=== PATIENT | female | born 1935 | race Caucasian/White ===

== ENCOUNTER 2017-03-20 18:11 | Inpatient (IN) | payer MEDICARE, BC ==
[2017-03-20] MEDS ORDERED: IPRATROPIUM/ALBUTEROL 0.5-2.5 MG/3 ML AMPUL NEB ONE ×2 (18:52→20:14)
--- NOTE | 2017-03-20 18:54 | ER Document Report ---
ED Medical Screen (RME) - General Chief Complaint: Shortness Of Breath Stated Complaint: SHORTNESS OF BREATH, COUGH Time Seen by Provider: 03/20/17 18:52 Notes: Patient was sent from urgent care. Patient has exertional dyspnea. Urgent care states that her sats were 88% when walking. Patient is an active smoker. She states she has does not have any type of inhalers at home. She has had cough and congestion for several days. TRAVEL OUTSIDE OF THE [place] IN LAST 30 DAYS: No - Related Data Allergies/Adverse Reactions: No Known Allergies Allergy (Verified 03/20/17 18:12) Home Medications: Current Home Medications Amlodipine Besylate [Amlodipine Besylate] 1 tab PO DAILY 03/20/17 [History] Atenolol [Atenolol] 1 tab PO DAILY 03/20/17 [History] Azithromycin [Azithromycin] 1 tab PO DAILY 03/20/17 [History] Prednisone [Prednisone] 2 tab PO DAILY 03/20/17 [History] Triamterene/Hydrochlorothiazid [Triamterene-Hctz 37.5-25 mg Tb] 1 each PO DAILY 03/20/17 [History] Past Medical History - Social History Chew tobacco use (# tins/day): No Frequency of alcohol use: Occasional Drug Abuse: None Renal/ Medical History: Denies: Hx Peritoneal Dialysis Physical Exam - Vital signs Vitals: Temp Pulse Resp BP Pulse Ox 97.9 F 80 16 143/69 H 93 03/20/17 18:31 03/20/17 18:31 03/20/17 18:31 03/20/17 18:31 03/20/17 18:31 Course - Vital Signs Vital signs: Temp Pulse Resp BP Pulse Ox 97.9 F 80 16 143/69 H 93 03/20/17 18:31 03/20/17 18:31 03/20/17 18:31 03/20/17 18:31 03/20/17 18:31
[2017-03-20 19:22] LABS: ABSOLUTE LYMPHOCYTES (AUTO) 1.3 10^3/uL (0.5-4.7); ABSOLUTE MONOCYTES (AUTO) 0.5 10^3/uL (0.1-1.4); BASOPHILS % (AUTO) 0.4 % (0-2); HEMATOCRIT 48.2 % (36.0-47.0); HEMOGLOBIN 17.4 g/dL (12.0-15.5); LYMPHOCYTES % (AUTO) 10.3 % (13-45); MEAN CORPUSCULAR HEMOGLOBIN 34.9 pg (27.0-33.4); MEAN CORPUSCULAR VOLUME 97 fl (80-97); MONOCYTES % (AUTO) 4.2 % (3-13); RED BLOOD COUNT 4.97 10^6/uL (3.72-5.28); RED CELL DISTRIBUTION WIDTH 13.2 % (11.5-14.0); SEGMENTED NEUTROPHILS % (AUTO) 85.1 % (42-78)
--- NOTE | 2017-03-20 19:38 | ER Document Report ---
ED Respiratory Problem - General Chief Complaint: Shortness Of Breath Stated Complaint: SHORTNESS OF BREATH, COUGH Time Seen by Provider: 03/20/17 18:52 Notes: Patient is a 82-year-old female comes emergency department for chief complaint of cough, congestion, and shortness of breath. She denies fever or chest pain. She states shortness of breath is when she gets up and tries to do anything. Symptoms started about 4 days ago, she was seen yesterday and placed on azithromycin and 40 mg of prednisone, she has had one dose of each. She is a smoker, she has a diagnosis of COPD, she is not on home oxygen, she denies history of hospitalizations, intubations. Only other medical history reported is hypertension. She has had flu shot. TRAVEL OUTSIDE OF THE [place] IN LAST 30 DAYS: No - Related Data Allergies/Adverse Reactions: No Known Allergies Allergy (Verified 03/20/17 18:12) Home Medications: Current Home Medications Amlodipine Besylate [Amlodipine Besylate] 5 mg PO DAILY 03/20/17 [History] Atenolol [Tenormin 50 mg Tablet] 100 mg PO DAILY 03/20/17 [History] Azithromycin [Azithromycin] 250 mg PO DAILY MDD FILLED 03/19 FOR 5DS 03/20/17 [ History] Doxycycline Hyclate [Vibramycin] 50 mg PO DAILY 03/20/17 [History] Prednisone [Prednisone] 40 mg PO DAILY MDD FILLED 03/19 FOR 5DS 03/20/17 [ History] Triamterene/Hydrochlorothiazid [Triamterene-Hctz 37.5-25 mg Tb] 1 tab PO DAILY 03/20/17 [History] Past Medical History - General Information source: Patient - Social History Smoking Status: Current Every Day Smoker Chew tobacco use (# tins/day): No Smoking Education Provided: Yes - <3 min Frequency of alcohol use: Occasional Drug Abuse: None Lives with: Family Family History: Reviewed & Not Pertinent Patient has suicidal ideation: No Patient has homicidal ideation: No - Past Medical History Cardiac Medical History: Reports: Hx Hypercholesterolemia, Hx Hypertension Pulmonary Medical History: Reports: Hx COPD Renal/ Medical History: Denies: Hx Peritoneal Dialysis - Immunizations Immunizations up to date: Yes Review of Systems - Review of Systems Constitutional: No symptoms reported EENT: See HPI Cardiovascular: No symptoms reported Respiratory: See HPI Gastrointestinal: No symptoms reported Genitourinary: No symptoms reported Female Genitourinary: No symptoms reported Musculoskeletal: No symptoms reported Skin: No symptoms reported Hematologic/Lymphatic: No symptoms reported Neurological/Psychological: No symptoms reported Physical Exam - Vital signs Vitals: Temp Pulse Resp BP Pulse Ox 97.9 F 80 16 143/69 H 93 03/20/17 18:31 03/20/17 18:31 03/20/17 18:31 03/20/17 18:31 03/20/17 18:31 Interpretation: Normal - General General appearance: Alert, Other - Patient with congested cough, does not appear to be in distress, alert, responds to questions appropriately - HEENT Head: Normocephalic, Atraumatic Eyes: Normal Pupils: PERRL - Respiratory Respiratory status: No: Respiratory distress, Labored Chest status: Nontender Breath sounds: Decreased air movement, Nonproductive cough, Rhonchi, Wheezing - Cardiovascular Rhythm: Regular. No: Tachycardia Heart sounds: Normal auscultation, S1 appreciated, S2 appreciated Murmur: No - Abdominal Inspection: Normal Distension: No distension Bowel sounds: Normal Tenderness: Nontender. No: Tender, Guarding Organomegaly: No organomegaly - Back Back: Normal, Nontender. No: Tender, CVA tenderness - Extremities General upper extremity: Normal inspection, Nontender, Normal strength, Normal temperature General lower extremity: Normal inspection, Nontender, Normal strength, Normal temperature - Neurological Neuro grossly intact: Yes Cognition: Normal Orientation: AAOx4 [place] Coma Scale Eye Opening: Spontaneous [place] Coma Scale Verbal: Oriented Joceline Coma Scale Motor: Obeys Commands Joceline Coma Scale Total: 15 Speech: Normal Motor strength normal: LUE, RUE, LLE, RLE Sensory: Normal - Psychological Associated symptoms: Normal affect, Normal mood - Skin Skin Temperature: Warm Skin Moisture: Dry Skin Color: Normal Course - Re-evaluation Re-evalutation: On initial evaluation patient has borderline tachypnea, borderline hypoxemia at 93% on room air, when placed on 2 L nasal cannula she averages at 95%. She has decreased breath sounds, scattered rhonchi, loud expiratory wheezes. Consistent with upper respiratory infection and COPD exacerbation. Chest x-ray unremarkable, CBC shows mild leukocytosis which is nonspecific given her prednisone, no fevers. Chemistry nonspecific. 03/20/17 23:20 Patient is significantly improved with only scant wheezes and a few scattered rhonchi after magnesium, Solu-Medrol, duo nebs. She is comfortable at rest on oxygen. When she ambulates she becomes pale, has labored breathing, oxygen saturation drops down to 85%. Patient is uncomfortable going home. Will discuss for admission to the hospital for COPD exacerbation, dyspnea on exertion , hypoxemia. Discussed with Dr. Aragon, internal medicine, patient will be admitted to telemetry observation. Patient and daughter state satisfaction and agreement with plan. - Vital Signs Vital signs: Temp Pulse Resp BP Pulse Ox 98.2 F 88 18 147/64 H 95 03/21/17 01:56 03/21/17 02:03 03/21/17 02:03 03/21/17 01:56 03/21/17 02:40 - Laboratory Result Diagrams: 03/20/17 19:05 03/20/17 19:05 Laboratory results interpreted by me: 03/20/17 03/20/17 19:05 19:05 WBC 13.0 H Hgb 17.4 H Hct 48.2 H MCH 34.9 H Seg Neutrophils % 85.1 H Lymphocytes % 10.3 L Absolute Neutrophils 11.0 H Sodium 133.7 L Chloride 94 L Glucose 153 H AST 46 H ALT 55 H Discharge - Discharge Clinical Impression: COPD exacerbation, Wheezing, Hypoxia Condition: Stable Disposition: ADMITTED OBSERVATION Admitting Provider: Hospitalist Unit Admitted: Telemetry
[2017-03-20 19:41] LABS: ALANINE AMINOTRANSFERASE 55 U/L (9-52); ALKALINE PHOSPHATASE 117 U/L (38-126); ANION GAP 15 (5-19); ASPARTATE AMINO TRANSFERASE 46 U/L (14-36); BILIRUBIN,DIRECT 0.3 mg/dL (0.0-0.4); BILIRUBIN,TOTAL 0.8 mg/dL (0.2-1.3); BLOOD UREA NITROGEN 19 mg/dL (7-20); CALCIUM 10.2 mg/dL (8.4-10.2); CARBON DIOXIDE 25 mmol/L (22-30); CHLORIDE 94 mmol/L (98-107); CREATININE RESULT 0.63 mg/dL (0.52-1.25); GLUCOSE 153 mg/dL (75-110); POTASSIUM 4.2 mmol/L (3.6-5.0); SODIUM 133.7 mmol/L (137-145); TOTAL PROTEIN 7.9 g/dL (6.3-8.2)
--- NOTE | 2017-03-20 19:45 | RADIOLOGY REPORT (SQ) ---
EXAM DESCRIPTION: CHEST PA/LAT COMPLETED DATE/TIME: 03/20/2017 7:14 pm REASON FOR STUDY: sob/cough COMPARISON: None. EXAM PARAMETERS: NUMBER OF VIEWS: two views TECHNIQUE: Digital Frontal and Lateral radiographic views of the chest acquired. RADIATION DOSE: NA LIMITATIONS: none FINDINGS: LUNGS AND PLEURA: No opacities, masses or pneumothorax. No pleural effusion. MEDIASTINUM AND HILAR STRUCTURES: No masses or contour abnormalities. HEART AND VASCULAR STRUCTURES: Heart normal size. No evidence for failure. BONES: No acute findings. HARDWARE: None in the chest. OTHER: No other significant finding. IMPRESSION: NO SIGNIFICANT RADIOGRAPHIC FINDING IN THE CHEST. TECHNICAL DOCUMENTATION: JOB ID: [id number] [employer]- All Rights Reserved
[2017-03-20] MEDS ORDERED: METHYLPREDNISOLONE INJ 125 MG/2 ML SDV IV ONE (20:14)
[2017-03-20] MEDS ORDERED: NORMAL SALINE 1000 ML 500 ML IV ONE (20:14)
[2017-03-20] MEDS: MAGNESIUM SULFATE/D5W 1 GM/100 ML RTUPB IV SCH ×2 (20:53→21:50)
[2017-03-20] MEDS ORDERED: ACETAMINOPHEN 325 MG TABLET PO PRN (23:31)
[2017-03-20] MEDS ORDERED: CHLORPHENIRAMINE MALEATE 4 MG TABLET PO ONE (23:31)
[2017-03-20] MEDS ORDERED: HYDRALAZINE HCL INJ/PF 20 MG/1 ML SDV IV PRN (23:31)
[2017-03-20] MEDS ORDERED: GUAIFENESIN SYRP 200 MG/10 ML UDC PO PRN (23:32)
[2017-03-20] MEDS ORDERED: FLUTICASONE NASAL SPRAY 50 MCG/SPRY 120 SPRAY/16 GM NASL ONE (23:45)
[2017-03-21] MEDS ORDERED: FLUTICASONE NASAL SPRAY 50 MCG/SPRY 120 SPRAY/16 GM ONE (01:00)
[2017-03-21] MEDS ORDERED: CHLORPHENIRAMINE MALEATE 4 MG TABLET ONE (01:00)
[2017-03-21] MEDS: IPRATROPIUM/ALBUTEROL 0.5-2.5 MG/3 ML AMPUL NEB SCH ×4 (02:03→20:07)
--- NOTE | 2017-03-21 02:22 | PDOC H&P ---
History of Present Illness Admission Date/PCP: 03/20/17 23:34 BLAIR HERNANDEZ, ETHAN-C Patient complains of: Shortness of breath History of Present Illness: STEPHY FLAHERTY is a 82 year old female with past medical history of chronic bronchitis, tobacco dependence, hypertension. Presents after 3 days of worsening shortness of breath with nonproductive cough. Denying rhinorrhea, sore throat or uncontrolled GERD. Patient admits chronic a.m. cough and ongoing tobacco dependence. She sought evaluation by primary care and received azithromycin and prednisone without significant improvement prompting evaluation emergency room where she has a unremarkable workup with exception to mild leukocytosis of 13 but a physical exam notable for rhonchi and rales. She receives albuterol and Atrovent and referred to the hospitalist for observation. Patient denies chest pain, nausea vomiting, denies new medications other than above Past Medical History Cardiac Medical History: Reports: Hypertension Pulmonary Medical History: Reports: Chronic Obstructive Pulmonary Disease (COPD) Musculoskeltal Medical History: Reports: Arthritis Social History Information Source: Patient Smoking Status: Current Every Day Smoker Cigarettes Packs Per Day: 1 Frequency of Alcohol Use: Social Amount of Alcoholic Beverages Per Day: 2 Hx Recreational Drug Use: No Drugs: None - Advance Directive Resuscitation Status: Full Code Family History Family History: COPD Parental Family History Reviewed: Yes Children Family History Reviewed: Yes Sibling(s) Family History Reviewed.: Yes Medication/Allergy Home Medications: Amlodipine Besylate [Amlodipine Besylate] 5 mg PO DAILY 03/20/17 Atenolol [Tenormin 50 mg Tablet] 100 mg PO DAILY 03/20/17 Azithromycin [Azithromycin] 250 mg PO DAILY MDD FILLED 03/19 FOR 5DS 03/20/17 Doxycycline Hyclate [Vibramycin] 50 mg PO DAILY 03/20/17 Prednisone [Prednisone] 40 mg PO DAILY MDD FILLED 03/19 FOR 5DS 03/20/17 Triamterene/Hydrochlorothiazid [Triamterene-Hctz 37.5-25 mg Tb] 1 tab PO DAILY 03/20/17 Allergies/Adverse Reactions: No Known Allergies Allergy (Verified 03/20/17 18:12) Review of Systems Constitutional: ABSENT: chills, fever(s), headache(s), weight gain, weight loss Eyes: ABSENT: visual disturbances Ears: ABSENT: hearing changes Cardiovascular: ABSENT: chest pain, dyspnea on exertion, edema, orthropnea, palpitations Respiratory: ABSENT: cough, hemoptysis Gastrointestinal: ABSENT: abdominal pain, constipation, diarrhea, hematemesis, hematochezia, nausea, vomiting Genitourinary: ABSENT: dysuria, hematuria Musculoskeletal: ABSENT: joint swelling Integumentary: ABSENT: rash, wounds Neurological: ABSENT: abnormal gait, abnormal speech, confusion, dizziness, focal weakness, syncope Psychiatric: ABSENT: anxiety, depression, homidical ideation, suicidal ideation Endocrine: ABSENT: cold intolerance, heat intolerance, polydipsia, polyuria Hematologic/Lymphatic: ABSENT: easy bleeding, easy bruising Physical Exam Vital Signs: Temp Pulse Resp BP Pulse Ox 98.2 F 89 22 H 147/64 H 98 03/21/17 01:56 03/21/17 01:56 03/21/17 01:56 03/21/17 01:56 03/21/17 01:56 Intake & Output 03/19/17 03/20/17 03/21/17 11:59 11:59 11:59 Weight 62.6 kg General appearance: PRESENT: mild distress, well-developed, well-nourished Head exam: PRESENT: atraumatic, normocephalic Eye exam: PRESENT: conjunctiva pink, EOMI, PERRLA. ABSENT: scleral icterus Ear exam: PRESENT: normal external ear exam Mouth exam: PRESENT: moist, tongue midline Neck exam: ABSENT: carotid bruit, JVD, lymphadenopathy, thyromegaly Respiratory exam: PRESENT: accessory muscle use, rales, retraction, rhonchi, tachypnea. ABSENT: wheezes Cardiovascular exam: PRESENT: RRR. ABSENT: diastolic murmur, rubs, systolic murmur Pulses: PRESENT: normal dorsalis pedis pul Vascular exam: PRESENT: normal capillary refill GI/Abdominal exam: PRESENT: normal bowel sounds, soft. ABSENT: distended, guarding, mass, organolmegaly, rebound, tenderness Rectal exam: PRESENT: deferred Extremities exam: PRESENT: full ROM. ABSENT: calf tenderness, clubbing, pedal edema Neurological exam: PRESENT: alert, awake, oriented to person, oriented to place , oriented to time, oriented to situation, CN II-XII grossly intact. ABSENT: motor sensory deficit Psychiatric exam: PRESENT: appropriate affect, normal mood. ABSENT: homicidal ideation, suicidal ideation Skin exam: PRESENT: dry, intact, warm. ABSENT: cyanosis, rash Results Impressions: Chest X-Ray 03/20/17 18:52 IMPRESSION: NO SIGNIFICANT RADIOGRAPHIC FINDING IN THE CHEST. Assessment & Plan - Diagnosis (1) Acute exacerbation of chronic bronchitis Is this a current diagnosis for this admission?: Yes Plan: Telemetry observation, chlorpheniramine, Flonase, albuterol and Atrovent, flutter valve and empiric antibiotics. (2) Tobacco abuse Is this a current diagnosis for this admission?: Yes Plan: Tobacco Dependence patient received tobacco cessation counseling and offered nicotine replacement options (3) COPD exacerbation Is this a current diagnosis for this admission?: Yes Plan: Please see #1 - Time Time Spent: 30 to 50 Minutes
[2017-03-21 05:08] LABS: ABSOLUTE LYMPHOCYTES (AUTO) 0.8 10^3/uL (0.5-4.7); ABSOLUTE MONOCYTES (AUTO) 0.2 10^3/uL (0.1-1.4); BASOPHILS % (AUTO) 0.1 % (0-2); HEMATOCRIT 41.9 % (36.0-47.0); HGB HCT DIFFERENCE 3.1; LYMPHOCYTES % (AUTO) 7.9 % (13-45); MEAN CORPUSCULAR HEMOGLOBIN 35.1 pg (27.0-33.4); MEAN CORPUSCULAR HGB CONC 35.8 g/dL (32.0-36.0); MEAN CORPUSCULAR VOLUME 98 fl (80-97); MONOCYTES % (AUTO) 2.3 % (3-13); RED BLOOD COUNT 4.27 10^6/uL (3.72-5.28); SEGMENTED NEUTROPHILS % (AUTO) 89.7 % (42-78)
[2017-03-21 05:28] LABS: ANION GAP 15 (5-19); BLOOD UREA NITROGEN 15 mg/dL (7-20); CALCIUM 9.8 mg/dL (8.4-10.2); CARBON DIOXIDE 21 mmol/L (22-30); CHLORIDE 95 mmol/L (98-107); CREATININE RESULT 0.64 mg/dL (0.52-1.25); GLUCOSE 258 mg/dL (75-110); POTASSIUM 3.6 mmol/L (3.6-5.0); SODIUM 131.4 mmol/L (137-145)
[2017-03-21] MEDS: HEPARIN SOD (PORCINE) 5,000 UNIT/ML 1 ML SYRINGE SUBCUT SCH ×3 (06:15→22:06)
[2017-03-21] MEDS ORDERED: PREDNISONE 20 MG TABLET PO SCH (10:00)
[2017-03-21] MEDS ORDERED: LEVOFLOXACIN 750 MG/D5W RTU 750 MG/150 ML RTUPB IV SCH (10:00)
[2017-03-21] MEDS: TRIAMTERENE/HYDROCHLOROTHIAZIDE 37.5-25 MG TABLET PO SCH (10:21)
[2017-03-21] MEDS: AMLODIPINE BESYLATE 5 MG TABLET PO SCH (10:21)
[2017-03-21] MEDS: FLUTICASONE NASAL SPRAY 50 MCG/SPRY 120 SPRAY/16 GM NASL SCH ×2 (10:22→22:06)
[2017-03-21] MEDS: ATENOLOL 50 MG TABLET PO SCH (10:27)
--- NOTE | 2017-03-21 12:05 | PDOC PROGRESS REPORT ---
Subjective Progress Note for:: 03/21/17 Subjective:: Still complains of cough and shortness of breath. Reason For Visit: COPD EXACERBATION ACUTE ON CHRONIC BRONCHITIS Physical Exam Vital Signs: Temp Pulse Resp BP Pulse Ox 97.6 F 84 14 137/60 H 95 03/21/17 07:47 03/21/17 08:02 03/21/17 08:02 03/21/17 07:47 03/21/17 08:02 Intake & Output 03/20/17 03/21/17 03/22/17 06:59 06:59 06:59 Intake Total 100 Output Total 200 Balance -100 Weight 62.6 kg General appearance: PRESENT: no acute distress Eye exam: PRESENT: conjunctiva pink. ABSENT: scleral icterus Mouth exam: PRESENT: moist, tongue midline Neck exam: ABSENT: JVD Respiratory exam: PRESENT: wheezes - Bilateral expiratory wheezes. ABSENT: rales, rhonchi Cardiovascular exam: PRESENT: RRR. ABSENT: diastolic murmur, rubs, systolic murmur GI/Abdominal exam: PRESENT: normal bowel sounds, soft. ABSENT: distended, guarding, mass, organolmegaly, rebound, tenderness Extremities exam: ABSENT: calf tenderness, clubbing, pedal edema Neurological exam: PRESENT: alert, awake, oriented to person, oriented to place , oriented to time, oriented to situation, CN II-XII grossly intact. ABSENT: motor sensory deficit Psychiatric exam: PRESENT: appropriate affect Skin exam: PRESENT: dry, intact, warm. ABSENT: cyanosis, rash Results Laboratory Results: 03/21/17 04:38 03/21/17 04:38 03/21/17 03/21/17 04:38 04:38 WBC 10.0 RBC 4.27 Hgb 15.0 D Hct 41.9 MCV 98 H MCH 35.1 H MCHC 35.8 RDW 13.0 Plt Count 238 Seg Neutrophils % 89.7 H Lymphocytes % 7.9 L Monocytes % 2.3 L Eosinophils % 0.0 Basophils % 0.1 Absolute Neutrophils 9.0 H Absolute Lymphocytes 0.8 Absolute Monocytes 0.2 Absolute Eosinophils 0.0 Absolute Basophils 0.0 Sodium 131.4 L Potassium 3.6 Chloride 95 L Carbon Dioxide 21 L Anion Gap 15 BUN 15 Creatinine 0.64 Est GFR ( Amer) > 60 Est GFR (Non-Af Amer) > 60 Glucose 258 H Calcium 9.8 Impressions: Chest X-Ray 03/20/17 18:52 IMPRESSION: NO SIGNIFICANT RADIOGRAPHIC FINDING IN THE CHEST. Assessment & Plan - Diagnosis (1) COPD exacerbation Is this a current diagnosis for this admission?: Yes Plan: The patient is currently on Levaquin and prednisone. She still wheezing and we will change to Solu-Medrol. (2) Hypertension Is this a current diagnosis for this admission?: Yes Plan: Continue with Tenormin, Norvasc and Maxzide. (3) Tobacco abuse Is this a current diagnosis for this admission?: Yes Plan: She is encouraged to quit - Time Time Spent with patient: 25-34 minutes - Inpatient Certification Medical Necessity: Need Close Monitoring Due to Risk of Patient Decompensation, Need for Nebulizer Therapy and Monitoring of Response
[2017-03-21] MEDS: METHYLPREDNISOLONE INJ 40 MG/1 ML SDV IV SCH ×2 (14:32→22:06)
[2017-03-22] MEDS: IPRATROPIUM/ALBUTEROL 0.5-2.5 MG/3 ML AMPUL NEB SCH ×2 (01:57→08:26)
[2017-03-22] MEDS: METHYLPREDNISOLONE INJ 40 MG/1 ML SDV IV SCH (05:53)
[2017-03-22] MEDS: HEPARIN SOD (PORCINE) 5,000 UNIT/ML 1 ML SYRINGE SUBCUT SCH (05:53)
[2017-03-22 07:12] LABS: ABSOLUTE LYMPHOCYTES (AUTO) 1.1 10^3/uL (0.5-4.7); ABSOLUTE MONOCYTES (AUTO) 0.5 10^3/uL (0.1-1.4); ABSOLUTE NEUT (AUTO) 11.8 10^3/uL (1.7-8.2); BASOPHILS % (AUTO) 0.2 % (0-2); HEMATOCRIT 42.6 % (36.0-47.0); HEMOGLOBIN 15.2 g/dL (12.0-15.5); LYMPHOCYTES % (AUTO) 8.4 % (13-45); MEAN CORPUSCULAR HEMOGLOBIN 34.7 pg (27.0-33.4); MEAN CORPUSCULAR HGB CONC 35.6 g/dL (32.0-36.0); MEAN CORPUSCULAR VOLUME 98 fl (80-97); MONOCYTES % (AUTO) 3.7 % (3-13); RED BLOOD COUNT 4.37 10^6/uL (3.72-5.28); SEGMENTED NEUTROPHILS % (AUTO) 87.7 % (42-78); WHITE BLOOD COUNT 13.5 10^3/uL (4.0-10.5)
[2017-03-22 07:40] LABS: ANION GAP 15 (5-19); BLOOD UREA NITROGEN 14 mg/dL (7-20); CARBON DIOXIDE 25 mmol/L (22-30); CHLORIDE 91 mmol/L (98-107); CREATININE RESULT 0.68 mg/dL (0.52-1.25); GLUCOSE 199 mg/dL (75-110); POTASSIUM 3.6 mmol/L (3.6-5.0); SODIUM 131.1 mmol/L (137-145)
[2017-03-22 09:15] VITALS: BP 114/52
[2017-03-22] MEDS: AMLODIPINE BESYLATE 5 MG TABLET PO SCH (09:22)
[2017-03-22] MEDS: TRIAMTERENE/HYDROCHLOROTHIAZIDE 37.5-25 MG TABLET PO SCH (09:22)
[2017-03-22] MEDS: ATENOLOL 50 MG TABLET PO SCH (09:22)
--- NOTE | 2017-03-22 11:52 | PDOC DISCHARGE SUMMARY ---
General - Admit/Disc Date/PCP Admission Date/Primary Care Provider: 03/21/17 13:24 NEGRO RANDALL Discharge Date: 03/22/17 - Discharge Diagnosis (1) COPD exacerbation Is this a current diagnosis for this admission?: Yes (2) Hypertension Is this a current diagnosis for this admission?: Yes (3) Tobacco abuse Is this a current diagnosis for this admission?: Yes - Additional Information Resuscitation Status: Full Code Discharge Diet: Cardiac Discharge Activity: Activity As Tolerated Prescriptions: Ipratropium/Albuterol Sulfate [Duoneb 3 ml Ampul] 3 ml NEB RTQ6 #120 vial.[facility] Levofloxacin [Levaquin 750 mg Tablet] 750 mg PO DAILY #3 tablet Prednisone 10 mg PO DAILY #39 tablet Home Medications: Amlodipine Besylate 5 mg PO DAILY 03/20/17 Atenolol [Tenormin 50 mg Tablet] 100 mg PO DAILY 03/20/17 Triamterene/Hydrochlorothiazid [Triamterene-Hctz 37.5-25 mg Tb] 1 tab PO DAILY 03/20/17 Ipratropium/Albuterol Sulfate [Duoneb 3 ml Ampul] 3 ml NEB RTQ6 #120 vial.neb Levofloxacin [Levaquin 750 mg Tablet] 750 mg PO DAILY #3 tablet 03/22/17 Prednisone 10 mg PO DAILY #39 tablet 03/22/17 History of Present Illness History of Present Illness: STPEHY FLAHERTY is a 82 year old female who has a history of chronic bronchitis and has been a chronic smoker who presented with shortness of breath for 3 days as well as a nonproductive cough. Patient was felt to have an acute COPD exacerbation and is admitted for treatment. Hospital Course Hospital Course: 82-year-old female who has a history of chronic bronchitis as well as tobacco abuse who presented with a 3 day history of shortness of breath and a nonproductive cough. The patient was started on steroids and antibiotics and nebulizers and had quick improvement in her respiratory status. On the day of discharge she was back to her baseline and she reported that she has never used nebulizers previously. She will be sent home with nebulizers as well as a prednisone taper and she is instructed to quit smoking. Her other medical problems were stable during this hospitalization. Physical Exam Vital Signs: Temp Pulse Resp BP Pulse Ox 97.6 F 84 17 114/52 L 98 03/22/17 09:01 03/22/17 09:01 03/22/17 09:01 03/22/17 09:01 03/22/17 09:01 Intake & Output 03/21/17 03/22/17 03/23/17 06:59 06:59 06:59 Intake Total 960 Output Total 1450 Balance -490 Weight 62.6 kg General appearance: PRESENT: no acute distress Eye exam: PRESENT: conjunctiva pink. ABSENT: scleral icterus Mouth exam: PRESENT: moist, tongue midline Neck exam: ABSENT: JVD Respiratory exam: PRESENT: clear to auscultation marlena. ABSENT: rales, rhonchi, wheezes Cardiovascular exam: PRESENT: RRR. ABSENT: diastolic murmur, rubs, systolic murmur GI/Abdominal exam: PRESENT: normal bowel sounds, soft. ABSENT: distended, guarding, mass, organolmegaly, rebound, tenderness Extremities exam: ABSENT: calf tenderness, clubbing, pedal edema Neurological exam: PRESENT: alert, awake, oriented to person, oriented to place , oriented to time, oriented to situation, CN II-XII grossly intact. ABSENT: motor sensory deficit Psychiatric exam: PRESENT: appropriate affect Skin exam: PRESENT: dry, intact, warm. ABSENT: cyanosis, rash Results Laboratory Results: 03/22/17 06:12 03/22/17 06:12 03/22/17 03/22/17 06:12 06:12 WBC 13.5 H RBC 4.37 Hgb 15.2 Hct 42.6 MCV 98 H MCH 34.7 H MCHC 35.6 RDW 13.0 Plt Count 281 Seg Neutrophils % 87.7 H Lymphocytes % 8.4 L Monocytes % 3.7 Eosinophils % 0.0 Basophils % 0.2 Absolute Neutrophils 11.8 H Absolute Lymphocytes 1.1 Absolute Monocytes 0.5 Absolute Eosinophils 0.0 Absolute Basophils 0.0 Sodium 131.1 L Potassium 3.6 Chloride 91 L Carbon Dioxide 25 Anion Gap 15 BUN 14 Creatinine 0.68 Est GFR ( Amer) > 60 Est GFR (Non-Af Amer) > 60 Glucose 199 H Calcium 10.0 Impressions: Chest X-Ray 03/20/17 18:52 IMPRESSION: NO SIGNIFICANT RADIOGRAPHIC FINDING IN THE CHEST. Qualifiers PATEINT BEING DISCHARGED WITH ANY OF THE FOLLOWING DIAGNOSIS?: No Plan Discharge Plan: Patient is discharged to home. Will follow with primary care in 2 weeks. Time Spent: Greater than 30 Minutes
== END 2017-03-22 10:23 | disposition home or self-care (01) | DRG 192 ==
LOC: ER 18:11 → EH 23:34 → 4N 03-21 01:48 → OBSVTOIN 03-21 13:24
PROVIDERS: ADMIT Internal Medicine; ATTEND Internal Medicine
DX: J44.1 Chronic obstructive pulmonary disease with (acute) exacerbation (principal); R09.02 Hypoxemia; E78.5 Hyperlipidemia, unspecified; I10 Essential (primary) hypertension; F17.210 Nicotine dependence, cigarettes, uncomplicated
CPT/HCPCS: 36415; 71020; 80048; 80053; 83880; 85025; 94640; 94667; 94668; 96365; 96366; 96375; 99285; J1644; J1956; J2920; J2930; J3475; J3490; J7030; J7620